=== PATIENT | male | born 1980 | race Caucasian/White ===

== ENCOUNTER 2019-05-30 01:39 | Emergency (ER) | payer BC, OTHER ==
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
[2019-05-30] MEDS ORDERED: AMOX/K CLAV 875 MG TAB ONE (03:03)
--- NOTE | 2019-05-30 11:55 | RAD REPORT ---
EXAM DESCRIPTION: RAD - Hand Right 3 View - 05/30/2019 2:27 am CLINICAL HISTORY: 2nd finger laceration COMPARISON: No comparisons FINDINGS: No acute fracture, dislocation or foreign body appreciated.
== END 2019-05-30 03:04 | disposition home or self-care (01) ==
LOC: ER 01:39
DX: S61.210A Laceration without foreign body of right index finger without damage to nail, initial encounter (principal); W51.XXXA Accidental striking against or bumped into by another person, initial encounter
CPT/HCPCS: 99284